=== PATIENT | female | born 1945 | race Caucasian/White ===

== ENCOUNTER 2019-01-17 05:50 | Inpatient (IN) | payer MEDICARE, OTHER, BC | END 2019-01-19 13:25 | disposition home or self-care (01) | LOC: TELE-EAST 01-19 05:14 → ER 05:50 → TELE 10:04 → TELE-EAST 17:28 | PROC: B2111ZZ Fluoroscopy of Multiple Coronary Arteries using Low Osmolar Contrast (ICD-10-PCS; principal; ~2019-01-17) | PROC: 027034Z Dilation of Coronary Artery, One Artery with Drug-eluting Intraluminal Device, Percutaneous Approach (ICD-10-PCS; ~2019-01-17) | PROC: B2151ZZ Fluoroscopy of Left Heart using Low Osmolar Contrast (ICD-10-PCS; ~2019-01-17) | DX: I21.4 Non-ST elevation (NSTEMI) myocardial infarction (principal); I50.33 Acute on chronic diastolic (congestive) heart failure; E44.1 Mild protein-calorie malnutrition; E78.00 Pure hypercholesterolemia, unspecified; G40.909 Epilepsy, unspecified, not intractable, without status epilepticus; E66.9 Obesity, unspecified; J45.909 Unspecified asthma, uncomplicated; Q21.9 Congenital malformation of cardiac septum, unspecified; E87.6 Hypokalemia; E03.9 Hypothyroidism, unspecified; M19.90 Unspecified osteoarthritis, unspecified site; M81.0 Age-related osteoporosis without current pathological fracture; I11.0 Hypertensive heart disease with heart failure ==

== ENCOUNTER 2019-01-30 03:55 | Inpatient (IN) | payer MEDICARE, OTHER ==
[~2019-01-30] VITALS: Ht 162.6 cm; Wt 96.0 kg
[~2019-01-30 03:55] MED LIST: ALBUAER3 IN; ASPI325T4 PO; DILT30TA24 PO; ESTR1TAB3 PO; FAMO-12 PO; FLUT1INH IN; FURO20TA3 PO; FURO40TA4 PO; OXYB5TAB61 PO; PANT40TA2 PO; PHE100C PO; POTA20TA53 PO; SIMV10TA84 PO
[2019-01-30 05:48] LABS: Basophils # (auto) 0.1 uL; Basophils % (auto) 0.6 % (0.0-2.0); Eosinophils # (auto) 0.1 uL; Eosinophils % (auto) 0.8 % (0.0-7.0); Hematocrit 42.6 % (36.0-46.0); Hemoglobin 14.6 g/dL (12.2-16.2); Lymphocytes # (auto) 2.1 uL; Lymphocytes % (auto) 19.6 % (10.0-50.0); Mean Corpuscular Hemoglobin 30.4 pg (28.0-32.0); Mean Corpuscular Hgb Conc. 34.4 g/dL (32.0-36.0); Mean Corpuscular Volume 88.3 fL (80.0-100.0); Monocytes # (auto) 0.8 uL; Monocytes % (auto) 7.6 % (0.0-12.0); Neutrophils # (auto) 7.6 uL; Neutrophils % (auto) 71.4 % (37.0-80.0); Nucleated Red Blood Cells % 0.1 %; Platelet Count (auto) 373 10^3/uL (140-450); Red Blood Cells 4.82 10^6/uL (4.0-5.20); Red Cell Distribution Width 13.5 % (11.8-14.3); White Blood Cell 10.7 10^3/uL (4.4-10.8)
[2019-01-30 06:16] LABS: Albumin 3.5 g/dL (3.4-5.0); Potassium 3.7 mmol/L (3.5-5.1)
[2019-01-30 06:22] LABS: BUN/Creatinine Ratio 17.5; Bilirubin, Total 0.5 mg/dL (0.2-1.0); Total Protein 7.1 g/dL (6.4-8.2)
[2019-01-30 06:35] LABS: INR 1.08 (0.9-1.15); Partial Thromboplastin Time 24.1 sec (23.78-33.04); Prothrombin Time 10.9 sec (9.27-12.13)
[2019-01-30] MEDS ORDERED: MORPHINE SULF INJ 2 MG/ML SYRINGE 1ML IV PRN (14:30)
[2019-01-30] MEDS ORDERED: NITROGLYCERIN 0.4 MG SL TAB SL PRN (14:30)
--- NOTE | 2019-01-30 17:30 | NUR ---
RECEIVED PATIENT FROM ER STAFF. PATIENT ASSISTED TO TRANSFER FROM [facility] TO CHAIR, TOLERATED ACTIVITY FAIRLY. PT IS ALERT, ORIENTED, RESPONSIVE TO COMMANDS, ABLE TO VERBALIZE NEEDS, GENERALIZED WEAKNESS NOTED. ABLE TO TRACK MOVEMENT. PT IN ON TELE 12 AT SR WITH OCC PVCs, NON-PITTING EDEMA TO BLE. BREATH SOUNDS CLEAR THROUGHOUT ON ROOM AIR. PALPABLE PULSES +2 TO ALL EXTREMITIES. ECCHYMOSIS TO RIGHT GROIN, NO PAIN TO SITE. COMFORTABLE ENVIRONMENT PROVIDED, BEDSIDE COMMODE PROVIDED, BED IN LOWEST POSITION, WHEELS LOCKED, CALL LIGHT WITHIN REACH.
[2019-01-30 17:45] VITALS: BP 123/61
[2019-01-30 18:50] VITALS: BP 123/61
--- NOTE | 2019-01-30 19:19 | NUR ---
PATIENTS DAUGHTER TO BRING HOME MEDICATIONS LIST AND PROVIDE TO MEDICAL STAFF. PATIENT REPORTS NEW ANTICOAGULATION PRESCRIPTION (CURRENTLY TAKING; DOES NOT KNOW MEDICATION NAME) DAUGHTER TO BRING LIST.
[2019-01-30] MEDS ORDERED: LORazepam 2MG/ML-1ML VIAL IV PRN (20:00)
[2019-01-30 20:58] VITALS: BP 123/61
[2019-01-30] MEDS ORDERED: DILTIAZEM HCL 30 MG PO SCH (22:00)
[2019-01-30 22:07] VITALS: BP 131/70
[2019-01-30] MEDS: PHENYTOIN SODIUM 100 MG CAP PO SCH (22:36)
[2019-01-30] MEDS: PROPRANOLOL HCL 20 MG TAB PO SCH (22:37)
[2019-01-30] MEDS: PRAVASTATIN SODIUM 20 MG TAB PO SCH (22:37)
--- NOTE | 2019-01-30 22:43 | NUR ---
Respiratory note: ASSESSED PT FOR PRN MED NEB AT THIS TIME, PT DENIES SOB AT THIS TIME, NO RESP DISTRESS NOTED, NO TX INDICATED, PULSE OX 94% ON RA, HR 99, RR 20, BILATERAL BS CLEAR
[2019-01-31 05:19] VITALS: BP 112/70
[2019-01-31] MEDS: PROPRANOLOL HCL 20 MG TAB PO SCH ×3 (06:30→21:53)
[2019-01-31] MEDS: PHENYTOIN SODIUM 100 MG CAP PO SCH ×3 (06:30→21:52)
[2019-01-31 06:57] LABS: Albumin 3.1 g/dL (3.4-5.0); Calcium 8.2 mg/dL (8.5-10.1); Potassium 3.6 mmol/L (3.5-5.1)
[2019-01-31 07:05] LABS: BUN/Creatinine Ratio 18.5; Bilirubin, Total 0.5 mg/dL (0.2-1.0); Total Protein 6.4 g/dL (6.4-8.2)
--- NOTE | 2019-01-31 07:18 | NUR ---
Opening Shift Note Assumed care of patient, patient is asleep. No S/S of distress/SOB or pain. Bed in lowest position, bed wheels locked, side rails up x2, call light within reach. Will continue to monitor for changes Q1hr and PRN.
[2019-01-31 08:00] VITALS: BP 119/69
[2019-01-31] MEDS ORDERED: GADOPENTETATE DIMEGLUMINE (10MMOL/20 ML) VIAL IV ONE (08:53)
[2019-01-31 09:00] VITALS: BP 119/69
[2019-01-31] MEDS: ASPirin 325 MG TAB PO SCH (09:59)
[2019-01-31] MEDS: PANTOPRAZOLE 40 MG TAB PO SCH (10:00)
[2019-01-31] MEDS: OXYBUTYNIN CHL 5 MG TAB PO SCH (10:00)
[2019-01-31] MEDS: CLOPIDOGREL BISULFATE 75 MG TAB PO SCH (10:00)
[2019-01-31] MEDS ORDERED: FAMOTIDINE 20 MG TAB PO SCH (10:00)
--- NOTE | 2019-01-31 10:45 | NUR ---
EEG COMPLETED AT BEDSIDE. LANDY DOWNEY.
[2019-01-31 13:00] VITALS: BP 127/63
[2019-01-31] MEDS: ALBUTEROL SULF 2.5 MG/0.5ML(0.5%) NEB SOLN NEB PRN ×2 (14:51→22:04)
[2019-01-31 17:00] VITALS: BP 133/59
--- NOTE | 2019-01-31 19:45 | NUR ---
Opening Shift Note Assumed care of patient, awake and alert oriented x4. No S/S of distress/SOB noted or pain noted. Seizure precautions in place and padded on the bedrails. Bed is in lowest locked position with bed rails up x2 and call light is within reach of the patient. Instructed on POC and to call for assist PRN.
[2019-01-31] MEDS: PRAVASTATIN SODIUM 20 MG TAB PO SCH (21:54)
[2019-01-31 22:12] VITALS: BP 102/53
[2019-02-01] MEDS: PROPRANOLOL HCL 20 MG TAB PO SCH ×3 (05:48→22:13)
[2019-02-01] MEDS: PHENYTOIN SODIUM 100 MG CAP PO SCH ×3 (05:48→22:12)
[2019-02-01 05:49] VITALS: BP 113/65
[2019-02-01 06:10] LABS: Basophils # (auto) 0.1 uL; Basophils % (auto) 0.6 % (0.0-2.0); Eosinophils # (auto) 0.4 uL; Eosinophils % (auto) 3.6 % (0.0-7.0); Hemoglobin 14.7 g/dL (12.2-16.2); Lymphocytes # (auto) 2.1 uL; Mean Corpuscular Hemoglobin 30.3 pg (28.0-32.0); Mean Corpuscular Hgb Conc. 34.3 g/dL (32.0-36.0); Mean Corpuscular Volume 88.5 fL (80.0-100.0); Monocytes # (auto) 0.9 uL; Monocytes % (auto) 8.5 % (0.0-12.0); Neutrophils # (auto) 6.7 uL; Neutrophils % (auto) 66.3 % (37.0-80.0); Platelet Count (auto) 316 10^3/uL (140-450); Red Blood Cells 4.86 10^6/uL (4.0-5.20); Red Cell Distribution Width 13.5 % (11.8-14.3); White Blood Cell 10.1 10^3/uL (4.4-10.8)
[2019-02-01 06:31] LABS: Potassium 3.8 mmol/L (3.5-5.1)
[2019-02-01 06:43] LABS: BUN/Creatinine Ratio 18.9; Calcium 8.3 mg/dL (8.5-10.1); Magnesium 2.5 mg/dL (1.6-2.6)
--- NOTE | 2019-02-01 07:04 | NUR ---
Closing note: Patient is resting in bed, breaths even and unlabored. No s/s of distress SOB noted. Bed is in lowest locked position with bed rails up times 2 and call light is within reach of the patient. Seizure precautions in place on the bed rails. Will endorse care to day shift nurse.
--- NOTE | 2019-02-01 07:15 | NUR ---
Opening Shift Note Assumed care of patient, awake and alert x4. No S/S of distress/SOB or pain. Bed in lowest position, side rails padded and up x2, bed wheels locked. Instructed on POC and to call for assist PRN, patient verbalized understanding. Will continue to monitor for changes Q1hr and PRN.
[2019-02-01 08:00] VITALS: BP 109/57
[2019-02-01] MEDS: ALBUTEROL SULF 2.5 MG/0.5ML(0.5%) NEB SOLN NEB PRN ×3 (08:34→22:19)
[2019-02-01 09:00] VITALS: BP 109/57
[2019-02-01] MEDS: ASPirin 325 MG TAB PO SCH (09:26)
[2019-02-01] MEDS: CLOPIDOGREL BISULFATE 75 MG TAB PO SCH (09:26)
[2019-02-01] MEDS: PANTOPRAZOLE 40 MG TAB PO SCH (09:26)
[2019-02-01] MEDS: OXYBUTYNIN CHL 5 MG TAB PO SCH (09:31)
--- NOTE | 2019-02-01 10:09 | NUR ---
ORDER AND CLINICALS FAXED TO [facility] REQUESTING TRANSFER TO HIGHER LEVEL OF CARE. Addendum: 02/01/19 at 1426 by Steve Felton RN CM MEDICARE TRANSPORTATION FORM COMPLETED AND FAXED TO [facility]
[2019-02-01 13:00] VITALS: BP 124/61
--- NOTE | 2019-02-01 16:12 | NUR ---
assessment Patient is a 73 year old female who is alert and oriented. Patients cognitive abilities are intact. Prior to admission patient lived home with family and functioned with assistance. Per patient she has a fww, wheelchair, and bedside commode for home use. Patients PCP is Dr Oswald. Patient informed me she fell at home. I informed patient she has a ss consult to transfer. Patient agrees to transfer. I informed patient she has a right to speak to a social group worker regarding all care. I informed patient she has a right to participate in any and all discharge planning. Patient is aware of visiting hours on the hospital floor. I informed patient she has a right to privacy. Patient has a POA and advanced directive. Patient verbalized understanding and agreed to discharge plan. Addendum: 02/01/19 at 1619 by Sara WYTAT Amended: Links added.
[2019-02-01 16:44] VITALS: BP 119/71
--- NOTE | 2019-02-01 17:46 | NUR ---
DR. ROSA, PATIENT TRANSFER DR. ROSA INFORMED ME THAT THE PATIENT ACCEPTED TO [place]. I TOLD HIM THAT WE WILL INFORM DR. MARS. HE TOLD ME THAT A BED HAS NOT BEEN ARRANGED AND WE WOULD HAVE TO WORK ON THAT. I TOLD HIM I WILL NOTIFY KRISTOPHER KING FROM SOCIAL WORK DEPARTMENT WELL.
--- NOTE | 2019-02-01 17:48 | NUR ---
KRISTOPHER KING HAS GONE HOME FOR THE DAY. NO ANSWER FROM HER OFFICE. MESSAGE LEFT. I WILL PASS ON THE INFORMATION TO DISEASE CASE MANAGER RN SO THEY CAN TELL THE RN TOMORROW TO FOLLOW UP WITH KRISTOPHER.
--- NOTE | 2019-02-01 19:53 | NUR ---
Respiratory note: PT RECIEVED ON RA. PT AWAKE AND ALERT. NO RESP DISTRESS NOTED. PT KNOWS TO CALL FOR TX. BS CLR/DIM T/O, SPO2 94%.
--- NOTE | 2019-02-01 20:15 | NUR ---
[facility] SPOKE TO JAVIER AT [facility], JAVIER STATES PATIENT HAS A BED AVAILABLE FOR TRANSFER. UPDATED JAVIER ON THE PATIENT NOT HAVING A DISCHARGE ORDER, PER JAVIER THEY CAN NOT HOLD BED FOR THIS PATIENT FOR LONG. CALL BACK INFORMATION PROVIDED [phone] TO UPDATE JAVIER ON DISCHARGE STATUS FOR THIS PATIENT.
--- NOTE | 2019-02-01 20:20 | NUR ---
HOSPITALIST PAGED PATIENT HAS BED AT [facility], NO DISCHARGE ORDER IN PLACE.
--- NOTE | 2019-02-01 20:42 | NUR ---
HOSPITALIST JUANITA RETURNS CALL, UPDATED ON PATIENT PENDING TRANSFER TO [facility] AND BED AVAILABILITY FOR TRANSFER. PATIENT NEEDS DISCHARGE ORDER FOR TRANSFER IT WAS NOT PLACED TODAY BY DAY SHIFT HOSPITALIST. NO DISCHARGE ORDERS RECEIVED.
--- NOTE | 2019-02-01 20:43 | NUR ---
PAGED REGARDING PATIENT TRANSFER TO [facility], NO DISCHARGE ORDER PLACED BY HOSPITALIST.
--- NOTE | 2019-02-01 20:46 | NUR ---
RETURNS CALL UPDATED ON PATIENT HAVING BED AVAILABLE AT [facility] BUT NO DISCHARGE ORDER PLACED BY HOSPITALIST TODAY. PER HE IS UNABLE TO WRITE DC ORDERS BECAUSE HE IS NOT HOSPITALIST. PATIENT WILL HAVE TO TRANSFER "TOMORROW", PER .
--- NOTE | 2019-02-01 21:30 | NUR ---
PATIENT UP TO BEDSIDE COMMODE WITH STANDBY ASSIST. PATIENT VOIDED CLEAR YELLOW URINE. PATIENT RETURNS TO BED WITHOUT INCIDENT. BED ALARM PLACED ON. FALL AND SEIZURE PRECAUTIONS IN PLACE. SIDE-RAILS PADDED.
--- NOTE | 2019-02-01 21:39 | NUR ---
[facility] CALL FROM JAVIER AT [facility]. UPDATED JAVIER ON INABILITY TO OBTAIN DISCHARGE ORDER FOR JENNY. JVAIER STATED HE WILL HAVE TO GIVE UP THE BED AND WILL UPDATE CASE MANAGEMENT TO ATTEMPT TO OBTAIN BED FOR THIS PATIENT TOMORROW, ALL QUESTIONS AND CONCERNS ADDRESSED. WILL ENDORSE TO DAY SHIFT RN.
[2019-02-01 21:57] VITALS: BP 110/60
[2019-02-01] MEDS: PRAVASTATIN SODIUM 20 MG TAB PO SCH (22:13)
[2019-02-02 05:00] VITALS: BP 117/60
[2019-02-02] MEDS: PROPRANOLOL HCL 20 MG TAB PO SCH ×2 (06:07→15:19)
[2019-02-02] MEDS: PHENYTOIN SODIUM 100 MG CAP PO SCH ×2 (06:07→15:18)
--- NOTE | 2019-02-02 08:49 | NUR ---
Respiratory note: ASSESSED PT FOR PRN TX PT WAS AWAKE AND ALERT NO RESP DISTRESS NOTED. HR 70, RR 18, SPO2 96%. BS ARE CLEAR NO INDICATION FOR TX AT THIS TIME. PT KNOWS TO HAVE RT PAGED IF TX IS NEEDED.
[2019-02-02 09:00] VITALS: BP 110/58
[2019-02-02] MEDS: PANTOPRAZOLE 40 MG TAB PO SCH (09:52)
[2019-02-02] MEDS: CLOPIDOGREL BISULFATE 75 MG TAB PO SCH (09:52)
--- NOTE | 2019-02-02 09:55 | NUR ---
TRANSFER ORDER FAXED TO [facility].
[2019-02-02] MEDS: OXYBUTYNIN CHL 5 MG TAB PO SCH (10:00)
[2019-02-02] MEDS ORDERED: ASPirin 325 MG TAB PO SCH (10:00)
[2019-02-02] MEDS ORDERED: DOCUSATE SOD 100 MG CAP PO ONE (11:00)
[2019-02-02 13:00] VITALS: BP 107/80
--- NOTE | 2019-02-02 14:20 | NUR ---
PATIENT HAS BEEN PUT ON WILL CALL WITH [facility]. PLEASE CALL [phone] WHEN PATIENT IS READY TO BE TRANSPORTED.
[2019-02-02] MEDS: ALBUTEROL SULF 2.5 MG/0.5ML(0.5%) NEB SOLN NEB PRN (14:34)
--- NOTE | 2019-02-02 15:23 | NUR ---
PATIENT HAS BEEN ACCEPTED AT [facility] ROOM 8207 BED 1. NUMBER FOR REPORT IS [phone]. [facility] HAS BEEN SCHEDULED TO PICK PATIENT UP AT 1600.
[2019-02-02 15:53] VITALS: BP 117/58
[2019-02-02 16:31] VITALS: BP 117/58
--- NOTE | 2019-02-02 18:30 | NUR ---
Discharge/Transfer note Patient transferred to [facility]. Patient left via [facility], no s/s of distress.
[2019-02-02] MEDS ORDERED: DOCUSATE SOD 100 MG CAP PO SCH (22:00)
== END 2019-02-02 18:55 | disposition short-term general hospital (02) | DRG 55 ==
LOC: EDBD 03:55 → ER 04:01 → TELE 14:28 → TELE-WESTW 17:17
PROVIDERS: ADMIT Nurse Practitioner Acute Care; ATTEND Internal Medicine
DX: D32.9 Benign neoplasm of meninges, unspecified (principal); G40.89 Other seizures; I25.10 Atherosclerotic heart disease of native coronary artery without angina pectoris; I10 Essential (primary) hypertension; E78.5 Hyperlipidemia, unspecified; K21.9 Gastro-esophageal reflux disease without esophagitis; J44.9 Chronic obstructive pulmonary disease, unspecified; Z88.8 Allergy status to other drugs, medicaments and biological substances; E66.9 Obesity, unspecified; Z88.0 Allergy status to penicillin; F17.200 Nicotine dependence, unspecified, uncomplicated; I25.2 Old myocardial infarction; M19.90 Unspecified osteoarthritis, unspecified site; M43.16 Spondylolisthesis, lumbar region; M48.061 Spinal stenosis, lumbar region without neurogenic claudication; Z79.82 Long term (current) use of aspirin; Z82.49 Family history of ischemic heart disease and other diseases of the circulatory system; Z83.3 Family history of diabetes mellitus; Z90.710 Acquired absence of both cervix and uterus; Z96.659 Presence of unspecified artificial knee joint; Z98.1 Arthrodesis status; G43.109 Migraine with aura, not intractable, without status migrainosus
CPT/HCPCS: 36415; 70450; 70553; 72131; 73700; 80048; 80053; 80061; 83735; 84484; 85025; 85610; 85730; 87081; 93005; 94640; 94761; 95819; 97163; G0378

== ENCOUNTER 2019-12-27 21:05 | Inpatient (IN) | payer MEDICARE, OTHER ==
[~2019-12-27] VITALS: Ht 170.2 cm; Wt 74.4 kg
[~2019-12-27 21:05] MED LIST changes: +POTA-220 PO; -POTA20TA53 PO
[2019-12-27 22:30] LABS: Eosinophils # (auto) 0.3 10 ^3/uL (0-0.8)
[2019-12-27] MEDS ORDERED: SODIUM CHLORIDE 0.9% 1,000 ML IV ONE (22:30)
[2019-12-27 22:32] LABS: Basophils # (auto) 0.1 10 ^3/uL (0-0.2); Basophils % (auto) 0.5 % (0.0-2.0); Eosinophils % (auto) 2.9 % (0.0-7.0); Hematocrit 36.8 % (36.0-46.0); Hemoglobin 12.4 g/dL (12.2-16.2); Lymphocytes # (auto) 2.6 10 ^3/uL (0.4-5.4); Lymphocytes % (auto) 22.2 % (10.0-50.0); Mean Corpuscular Hemoglobin 29.3 pg (28.0-32.0); Mean Corpuscular Hgb Conc. 33.5 g/dL (32.0-36.0); Mean Corpuscular Volume 87.5 fL (80.0-100.0); Monocytes # (auto) 1.2 10 ^3/uL (0-1.3); Neutrophils # (auto) 7.7 10 ^3/uL (1.6-8.6); Neutrophils % (auto) 64.4 % (37.0-80.0); Nucleated Red Blood Cells % 0.1 %; Platelet Count (auto) 538 10^3/uL (140-450); Red Blood Cells 4.21 10^6/uL (4.0-5.20); Red Cell Distribution Width 16.4 % (11.8-14.3); White Blood Cell 11.9 10^3/uL (4.4-10.8)
[2019-12-27 22:46] LABS: INR 1.13 (0.9-1.15); Partial Thromboplastin Time 26.2 sec (23.64-32.05)
[2019-12-27 22:49] LABS: Alanine Aminotransferase 36 U/L (13-56); Anion Gap 8 (5-15); Aspartate Aminotransferase 33 U/L (15-37); BUN/Creatinine Ratio 27.9; Blood Urea Nitrogen 12 mg/dL (7-18); Calcium 8.6 mg/dL (8.5-10.1); Carbon Dioxide 25 mmol/L (21-32); Chloride 103 mmol/L (98-107); GFR African American 184 mL/min; GFR Non-African American 152 mL/min; Glucose 91 mg/dL (74-106); Potassium 3.3 mmol/L (3.5-5.1); Sodium 136 mmol/L (136-145)
[2019-12-27 22:53] LABS: Alkaline Phosphatase 113 U/L (45-117); Bilirubin, Total 0.2 mg/dL (0.2-1.0); Total Protein 7.1 g/dL (6.4-8.2)
[2019-12-27 23:01] LABS: Urine Amorphous Crystal FEW /hpf (None Seen); Urine Bacteria MOD /hpf (None Seen); Urine Blood Negative /uL (Negative); Urine Budding Yeast FEW /hpf (None Seen); Urine WBC 59 /hpf (0 - 5)
[2019-12-28] MEDS ORDERED: MORPHINE SULFATE 4 MG/ML SYR/VIAL IV ONE (00:15)
[2019-12-28] MEDS ORDERED: ONDANSETRON HCL 4 MG/2 ML VIAL IV ONE (00:15)
[2019-12-28] MEDS ORDERED: LABETALOL HCL 5 MG/ML 4ML SYRINGE IV ONE (02:45)
[2019-12-28] MEDS ORDERED: ONDANSETRON HCL 4 MG/2 ML VIAL IV PRN (02:45)
[2019-12-28] MEDS ORDERED: ALBUTEROL SULF 2.5 MG/0.5ML(0.5%) NEB SOLN NEB PRN (02:45)
[2019-12-28] MEDS ORDERED: ACETAMINOPHEN 325 MG TAB PO PRN (02:45)
[2019-12-28] MEDS ORDERED: TEMAZEPAM 15 MG CAP PO PRN (02:45)
[2019-12-28] MEDS ORDERED: levoFLOXacin 500MG 100 ML IV ONE (02:45)
[2019-12-28] MEDS ORDERED: POTASSIUM EFFERVESENT TAB 25 MEQ PO ONE (02:45)
[2019-12-28 03:00] VITALS: BP 142/72
[2019-12-28] MEDS ORDERED: dilTIAZem 25 MG/5 ML VIAL IV ONE (03:15)
[2019-12-28] MEDS ORDERED: diphenhdrAMINE HCL 50 MG/1 ML VL ONE (03:38)
[2019-12-28] MEDS ORDERED: diphenhdrAMINE HCL 50 MG/1 ML VL IV ONE (03:45)
[2019-12-28 05:00] VITALS: BP 132/83
[2019-12-28] MEDS: PHENYTOIN SODIUM 100 MG CAP PO SCH ×3 (06:59→21:05)
[2019-12-28 09:00] VITALS: BP 148/64
[2019-12-28] MEDS ORDERED: ASPirin 81 mg TAB PO SCH (10:00)
[2019-12-28] MEDS ORDERED: FUROSEMIDE 40 MG TAB PO SCH (10:00)
[2019-12-28] MEDS: PANTOPRAZOLE 40 MG TAB PO SCH (10:41)
[2019-12-28] MEDS: ENOXAPARIN SOD 40 MG/0.4 ML SYRINGE SC SCH (10:42)
[2019-12-28] MEDS: SODIUM CHLORIDE 0.9% 1,000 ML IV SCH ×2 (10:45→21:03)
[2019-12-28 11:24] LABS: Basophils # (auto) 0.1 10 ^3/uL (0-0.2); Eosinophils # (auto) 0.4 10 ^3/uL (0-0.8); Hemoglobin 11.7 g/dL (12.2-16.2); Lymphocytes # (auto) 2.7 10 ^3/uL (0.4-5.4); Mean Corpuscular Hgb Conc. 33.5 g/dL (32.0-36.0); Nucleated Red Blood Cells % 0.1 %
[2019-12-28 11:26] LABS: Basophils % (auto) 0.7 % (0.0-2.0); Eosinophils % (auto) 2.9 % (0.0-7.0); Hematocrit 34.8 % (36.0-46.0); Lymphocytes % (auto) 18.8 % (10.0-50.0); Mean Corpuscular Hemoglobin 29.7 pg (28.0-32.0); Mean Corpuscular Volume 88.6 fL (80.0-100.0); Monocytes # (auto) 1.5 10 ^3/uL (0-1.3); Monocytes % (auto) 10.3 % (0.0-12.0); Neutrophils # (auto) 9.7 10 ^3/uL (1.6-8.6); Neutrophils % (auto) 67.3 % (37.0-80.0); Platelet Count (auto) 509 10^3/uL (140-450); Red Blood Cells 3.93 10^6/uL (4.0-5.20); Red Cell Distribution Width 15.7 % (11.8-14.3); White Blood Cell 14.3 10^3/uL (4.4-10.8)
[2019-12-28 11:37] LABS: Magnesium 2.3 mg/dL (1.6-2.6); Potassium 3.6 mmol/L (3.5-5.1)
[2019-12-28 11:45] LABS: Free T4 (Free Thyroxine) 1.02 ng/dL (0.89-1.76)
[2019-12-28 11:46] LABS: Folate (Folic Acid) > 24.00 ng/mL (5.38-24)
[2019-12-28 12:32] VITALS: BP 130/65
[2019-12-28] MEDS: AZTREONAM 1GM INJ 1 GM in D5W 5% 50 ML IV SCH ×2 (15:20→21:12)
[2019-12-28 16:45] VITALS: BP 140/81
[2019-12-28 21:26] VITALS: BP 148/83
[2019-12-28] MEDS ORDERED: ATORVASTATIN 20 MG TAB PO SCH (22:00)
[2019-12-29] MEDS ORDERED: levoFLOXacin 500MG 100 ML IV SCH (03:00)
[2019-12-29] MEDS: SODIUM CHLORIDE 0.9% 1,000 ML IV SCH ×2 (04:51→16:42)
[2019-12-29] MEDS: Jevity 1.2 Cal/Fiber 1 Liter GT SCH (04:52)
[2019-12-29 05:18] VITALS: BP 143/72
[2019-12-29] MEDS: AZTREONAM 1GM INJ 1 GM in D5W 5% 50 ML IV SCH ×3 (05:46→21:44)
[2019-12-29 06:14] LABS: Basophils # (auto) 0.1 10 ^3/uL (0-0.2); Basophils % (auto) 0.7 % (0.0-2.0); Hemoglobin 11.3 g/dL (12.2-16.2); Lymphocytes # (auto) 2.1 10 ^3/uL (0.4-5.4); Neutrophils # (auto) 6.8 10 ^3/uL (1.6-8.6); White Blood Cell 10.3 10^3/uL (4.4-10.8)
[2019-12-29 06:19] LABS: Eosinophils # (auto) 0.2 10 ^3/uL (0-0.8); Eosinophils % (auto) 2.4 % (0.0-7.0); Lymphocytes % (auto) 20.3 % (10.0-50.0); Mean Corpuscular Hemoglobin 29.8 pg (28.0-32.0); Mean Corpuscular Hgb Conc. 34.2 g/dL (32.0-36.0); Mean Corpuscular Volume 87.1 fL (80.0-100.0); Monocytes % (auto) 10.2 % (0.0-12.0); Neutrophils % (auto) 66.4 % (37.0-80.0); Nucleated Red Blood Cells % 0.1 %; Platelet Count (auto) 567 10^3/uL (140-450); Red Cell Distribution Width 16.1 % (11.8-14.3)
[2019-12-29 06:29] LABS: Calcium 8.4 mg/dL (8.5-10.1)
[2019-12-29 06:31] LABS: BUN/Creatinine Ratio 33.3
[2019-12-29] MEDS: PHENYTOIN SODIUM 100 MG CAP PO SCH (06:41)
[2019-12-29 09:00] VITALS: BP_SYST 123; BP_SYST 130; BP_DIAS 68; BP_DIAS 77
[2019-12-29] MEDS: PANTOPRAZOLE 40 MG TAB PO SCH (10:00)
[2019-12-29] MEDS ORDERED: VALP250S16 GT (10:03)
[2019-12-29] MEDS ORDERED: LEVE250T18 GT (10:06)
[2019-12-29] MEDS ORDERED: TEMAZEPAM 15 MG CAP GT PRN (10:15)
[2019-12-29] MEDS ORDERED: ACETAMINOPHEN 650 mg PER 20 mL UD GT PRN (10:15)
[2019-12-29] MEDS: ASPirin 81 mg TAB GT SCH (10:31)
[2019-12-29] MEDS: ENOXAPARIN SOD 40 MG/0.4 ML SYRINGE SC SCH (10:31)
[2019-12-29] MEDS: FUROSEMIDE 40 MG TAB GT SCH (10:32)
[2019-12-29 13:00] VITALS: BP 138/70
[2019-12-29] MEDS: PHENYTOIN 100 MG/4 ML SUSP GT SCH ×2 (14:19→21:42)
[2019-12-29] MEDS ORDERED: POTASSIUM EFFERVESENT TAB 25 MEQ GT ONE (15:00)
[2019-12-29] MEDS ORDERED: FLUCONAZOLE 200MG/100ML 100 ML IV ONE (15:00)
[2019-12-29] MEDS: OMEPRAZOLE 20MG/10ML ORAL SUSP GT SCH (16:33)
[2019-12-29 17:00] VITALS: BP 132/76
[2019-12-29 21:15] VITALS: BP_SYST 118; BP_SYST 140; BP_DIAS 83
[2019-12-29] MEDS: ATORVASTATIN 20 MG TAB GT SCH (21:42)
[2019-12-30 04:40] VITALS: BP 150/54
[2019-12-30 05:50] LABS: Basophils # (auto) 0.1 10 ^3/uL (0-0.2); Lymphocytes # (auto) 1.9 10 ^3/uL (0.4-5.4); Lymphocytes % (auto) 16.7 % (10.0-50.0); Neutrophils % (auto) 70.9 % (37.0-80.0); Platelet Count (auto) 542 10^3/uL (140-450)
[2019-12-30 05:52] LABS: Basophils % (auto) 0.5 % (0.0-2.0); Eosinophils # (auto) 0.4 10 ^3/uL (0-0.8); Eosinophils % (auto) 3.3 % (0.0-7.0); Hematocrit 31.9 % (36.0-46.0); Hemoglobin 10.8 g/dL (12.2-16.2); Mean Corpuscular Hemoglobin 29.5 pg (28.0-32.0); Mean Corpuscular Hgb Conc. 33.8 g/dL (32.0-36.0); Mean Corpuscular Volume 87.1 fL (80.0-100.0); Monocytes % (auto) 8.6 % (0.0-12.0); Neutrophils # (auto) 8.2 10 ^3/uL (1.6-8.6); Red Blood Cells 3.66 10^6/uL (4.0-5.20); White Blood Cell 11.5 10^3/uL (4.4-10.8)
[2019-12-30 06:07] LABS: Calcium 8.1 mg/dL (8.5-10.1); Potassium 3.5 mmol/L (3.5-5.1)
[2019-12-30 06:08] LABS: BUN/Creatinine Ratio 34.4
[2019-12-30] MEDS: PHENYTOIN 100 MG/4 ML SUSP GT SCH ×3 (06:56→21:53)
[2019-12-30] MEDS: SODIUM CHLORIDE 0.9% 1,000 ML IV SCH ×3 (06:56→23:40)
[2019-12-30] MEDS: AZTREONAM 1GM INJ 1 GM in D5W 5% 50 ML IV SCH ×3 (06:56→21:53)
[2019-12-30 09:00] VITALS: BP 142/79
[2019-12-30] MEDS: ASPirin 81 mg TAB GT SCH (11:26)
[2019-12-30] MEDS: FUROSEMIDE 40 MG TAB GT SCH (11:26)
[2019-12-30] MEDS: OMEPRAZOLE 20MG/10ML ORAL SUSP GT SCH (11:27)
[2019-12-30] MEDS: FLUCONAZOLE 200MG/100ML 100 ML IV SCH (11:27)
[2019-12-30] MEDS: ENOXAPARIN SOD 40 MG/0.4 ML SYRINGE SC SCH (11:27)
[2019-12-30 13:00] VITALS: BP 139/85
[2019-12-30 17:00] VITALS: BP 139/85
[2019-12-30 19:38] VITALS: BP 139/85
[2019-12-30 21:00] VITALS: BP 127/74
[2019-12-30] MEDS: ATORVASTATIN 20 MG TAB GT SCH (21:53)
[2019-12-31 04:30] VITALS: BP 140/75
[2019-12-31] MEDS: PHENYTOIN 100 MG/4 ML SUSP GT SCH ×3 (05:17→21:36)
[2019-12-31] MEDS: AZTREONAM 1GM INJ 1 GM in D5W 5% 50 ML IV SCH ×3 (05:18→21:40)
[2019-12-31 05:55] LABS: Eosinophils # (auto) 0.5 10 ^3/uL (0-0.8); Mean Corpuscular Hemoglobin 29.6 pg (28.0-32.0); Neutrophils # (auto) 9.3 10 ^3/uL (1.6-8.6); White Blood Cell 13.5 10^3/uL (4.4-10.8)
[2019-12-31 05:58] LABS: Basophils # (auto) 0 10 ^3/uL (0-0.2); Basophils % (auto) 0.3 % (0.0-2.0); Eosinophils % (auto) 3.7 % (0.0-7.0); Hematocrit 34.2 % (36.0-46.0); Hemoglobin 11.4 g/dL (12.2-16.2); Lymphocytes # (auto) 2.6 10 ^3/uL (0.4-5.4); Lymphocytes % (auto) 19.1 % (10.0-50.0); Mean Corpuscular Hgb Conc. 33.4 g/dL (32.0-36.0); Mean Corpuscular Volume 88.6 fL (80.0-100.0); Monocytes # (auto) 1.1 10 ^3/uL (0-1.3); Monocytes % (auto) 8.2 % (0.0-12.0); Neutrophils % (auto) 68.7 % (37.0-80.0); Platelet Count (auto) 586 10^3/uL (140-450); Red Blood Cells 3.86 10^6/uL (4.0-5.20); Red Cell Distribution Width 16.1 % (11.8-14.3)
[2019-12-31] MEDS: Jevity 1.2 Cal/Fiber 1 Liter GT SCH (07:03)
[2019-12-31 09:29] VITALS: BP 136/76
[2019-12-31] MEDS: ASPirin 81 mg TAB GT SCH (10:39)
[2019-12-31] MEDS: FUROSEMIDE 40 MG TAB GT SCH (10:42)
[2019-12-31] MEDS: OMEPRAZOLE 20MG/10ML ORAL SUSP GT SCH (10:42)
[2019-12-31] MEDS: ENOXAPARIN SOD 40 MG/0.4 ML SYRINGE SC SCH (10:43)
[2019-12-31] MEDS: FLUCONAZOLE 200MG/100ML 100 ML IV SCH (10:43)
[2019-12-31] MEDS ORDERED: OPTISON 3ml Vial for INJ IV ONE (11:58)
[2019-12-31 12:36] VITALS: BP 134/76
[2019-12-31] MEDS ORDERED: POTASSIUM CHL 20MEQ/100ML 100 ML IV ONE (13:00)
[2019-12-31 17:15] VITALS: BP 130/74
[2019-12-31 20:00] VITALS: BP 132/70
[2019-12-31] MEDS: ATORVASTATIN 20 MG TAB GT SCH (21:36)
[2019-12-31 22:00] VITALS: BP 132/70
[2020-01-01] MEDS: Jevity 1.2 Cal/Fiber 1 Liter GT SCH (00:30)
[2020-01-01 05:00] VITALS: BP 130/72
[2020-01-01] MEDS: PHENYTOIN 100 MG/4 ML SUSP GT SCH (05:38)
[2020-01-01] MEDS: AZTREONAM 1GM INJ 1 GM in D5W 5% 50 ML IV SCH ×2 (05:38→15:34)
[2020-01-01 06:45] LABS: Basophils # (auto) 0.1 10 ^3/uL (0-0.2); Eosinophils # (auto) 0.4 10 ^3/uL (0-0.8); Hemoglobin 10.7 g/dL (12.2-16.2); Mean Corpuscular Hgb Conc. 33.7 g/dL (32.0-36.0); White Blood Cell 13.1 10^3/uL (4.4-10.8)
[2020-01-01 06:48] LABS: Basophils % (auto) 0.5 % (0.0-2.0); Eosinophils % (auto) 2.7 % (0.0-7.0); Hematocrit 31.8 % (36.0-46.0); Lymphocytes # (auto) 2.6 10 ^3/uL (0.4-5.4); Lymphocytes % (auto) 19.6 % (10.0-50.0); Mean Corpuscular Hemoglobin 29.3 pg (28.0-32.0); Mean Corpuscular Volume 86.9 fL (80.0-100.0); Monocytes # (auto) 1.1 10 ^3/uL (0-1.3); Monocytes % (auto) 8.2 % (0.0-12.0); Platelet Count (auto) 559 10^3/uL (140-450); Red Blood Cells 3.66 10^6/uL (4.0-5.20); Red Cell Distribution Width 16.3 % (11.8-14.3)
[2020-01-01 07:03] LABS: BUN/Creatinine Ratio 44.4; Calcium 8.3 mg/dL (8.5-10.1); Magnesium 1.6 mg/dL (1.6-2.6); Potassium 3.6 mmol/L (3.5-5.1)
[2020-01-01 09:00] VITALS: BP 148/79
[2020-01-01] MEDS: ENOXAPARIN SOD 40 MG/0.4 ML SYRINGE SC SCH (11:39)
[2020-01-01] MEDS: FUROSEMIDE 40 MG TAB GT SCH (11:40)
[2020-01-01] MEDS: ASPirin 81 mg TAB GT SCH (11:40)
[2020-01-01] MEDS: OMEPRAZOLE 20MG/10ML ORAL SUSP GT SCH (11:41)
[2020-01-01] MEDS: FLUCONAZOLE 200MG/100ML 100 ML IV SCH (11:41)
[2020-01-01] MEDS ORDERED: FLUC200T35 PO (12:35)
[2020-01-01] MEDS ORDERED: NITR100C44 PO (12:35)
[2020-01-01] MEDS ORDERED: PROBCAP12 OR (12:35)
[2020-01-01 14:18] VITALS: BP 139/76
[2020-01-01 14:33] VITALS: BP 139/76
[2020-01-01] MEDS ORDERED: PHENYTOIN 100 MG/4 ML SUSP GT SCH (15:17)
== END 2020-01-01 16:47 | disposition home health service (06) | DRG 871 ==
LOC: EDBD 21:05 → ER 21:08 → OVERFLOW 21:09 → WEST WING 12-28 03:45
PROVIDERS: ADMIT Nurse Practitioner; ATTEND Internal Medicine
DX: A41.9 Sepsis, unspecified organism (principal); G93.41 Metabolic encephalopathy; N39.0 Urinary tract infection, site not specified; E44.0 Moderate protein-calorie malnutrition; E87.6 Hypokalemia; E86.0 Dehydration; Z82.49 Family history of ischemic heart disease and other diseases of the circulatory system; Z83.3 Family history of diabetes mellitus; E78.5 Hyperlipidemia, unspecified; I10 Essential (primary) hypertension; G35 Multiple sclerosis; I70.0 Atherosclerosis of aorta; Z87.440 Personal history of urinary (tract) infections; Z90.710 Acquired absence of both cervix and uterus; Z74.01 Bed confinement status; Z86.011 Personal history of benign neoplasm of the brain; K21.9 Gastro-esophageal reflux disease without esophagitis; Z88.0 Allergy status to penicillin; Z88.1 Allergy status to other antibiotic agents; Z79.82 Long term (current) use of aspirin; Z79.899 Other long term (current) drug therapy; Z68.25 Body mass index [BMI] 25.0-25.9, adult; Z90.49 Acquired absence of other specified parts of digestive tract; I25.2 Old myocardial infarction
CPT/HCPCS: 36415; 70450; 70551; 71045; 80048; 80053; 81001; 82607; 82746; 83605; 83735; 84439; 84443; 84484; 85025; 85610; 85730; 87040; 87086; 93005; 93306; 97110; 97163; 97530; G0378; J1450; J1956; J2405; J3480; J7060; Q9956